=== PATIENT | male | born 1945 | race Caucasian/White ===

== ENCOUNTER 2019-04-29 21:05 | Emergency (ER) | payer OTHER ==
[~2019-04-29] VITALS: Ht 167.6 cm; Wt 72.0 kg
[2019-04-29] MEDS ORDERED: BRIM15DR8 OU (21:27)
[2019-04-29] MEDS ORDERED: TAMS-1 PO (21:27)
[2019-04-29] MEDS ORDERED: SITA100 PO (21:27)
[2019-04-29] MEDS ORDERED: LISI-661 PO (21:27)
[2019-04-29] MEDS ORDERED: ATOR40TA28 PO (21:27)
[2019-04-29] MEDS ORDERED: EMPA10TA PO (21:27)
[2019-04-29] MEDS ORDERED: BUDE10.2 IH (21:27)
[2019-04-29] MEDS ORDERED: INSLAN SQ (21:28)
[2019-04-29] MEDS ORDERED: IPRATROPIUM BROMIDE 0.5 MG/2.5 ML NEB SOLUTION NEB ONE (22:30)
[2019-04-29] MEDS ORDERED: MethylPREDNISolone SOD SUCC 125 MG/2 ML VIAL IVP ONE (22:30)
[2019-04-29] MEDS ORDERED: ALBUTEROL SULFATE 2.5 MG/0.5 ML NEB SOLUTION NEB ONE (22:30)
[2019-04-29] MEDS ORDERED: ACETAMINOPHEN 500 MG TABLET PO ONE (22:30)
[2019-04-29 23:00] LABS: BASOPHILS % (AUTO) 0.3 % (0.0-2.0); EOSINOPHILS % (AUTO) 0.6 % (1.0-6.0); HEMATOCRIT 41.7 % (41-53); HEMOGLOBIN 13.9 g/dL (13.5-17.5); LYMPHOCYTES # (AUTO) 2.9 K/uL (1.0-4.8); LYMPHOCYTES % (AUTO) 44.7 % (22.0-44.0); MEAN CORPUSCULAR HEMOGLOBIN 33.2 pg (26.0-34.0); MEAN CORPUSCULAR HGB CONC 33.4 G/dL (31.0-37.0); MEAN CORPUSCULAR VOLUME 99 fL (80-100); MONOCYTES # (AUTO) 0.5 K/uL (0.1-1.0); MONOCYTES % (AUTO) 7.1 % (2.0-9.0); NEUTROPHILS % (AUTO) 47.3 % (40.0-70.0); PLATELET COUNT (AUTO) 212 K/uL (150-450); RED BLOOD CELL COUNT(AUTO) 4.19 MIL/uL (4.50-5.90); RED CELL DISTRIBUTION WIDTH 12.6 % (11.5-14.5)
[2019-04-29 23:10] LABS: ANION GAP 9 mmol/L (8-16); CARBON DIOXIDE 27 mmol/L (22-29); CHLORIDE 106 mmol/L (98-107); CREATININE 0.96 mg/dL (0.60-1.30); GLUCOSE,RANDOM 131 mg/dL (70-110); POTASSIUM 3.8 mmol/L (3.5-5.1); SODIUM SERUM 142 mmol/L (136-145); UREA NITROGEN, BLOOD 19 mg/dL (7-18)
[2019-04-29 23:11] LABS: GLOMERULAR FILTR. RATE CALC > 60 mL/min (>60)
[2019-04-29 23:16] LABS: ALANINE AMINOTRANSFERASE 15 U/L (12-78); ALBUMIN 3.3 g/dL (3.4-5.0); ALKALINE PHOSPHATASE 95 U/L (46-116); ASPARTATE AMINOTRANSFERASE 11 U/L (15-37); BILIRUBIN,TOTAL 0.3 mg/dL (0.1-1.0)
[2019-04-29 23:20] LABS: LACTIC ACID 1.2 mmol/L (0.4-2.0)
[2019-04-29 23:23] LABS: B-TYPE NATRIURETIC PEPTIDE 10 pg/mL (0-100)
[2019-04-29 23:58] LABS: INFLUENZA TYPE A NEGATIVE FOR TYPE A (NEGATIVE); INFLUENZA TYPE B NEGATIVE FOR TYPE B (NEGATIVE)
[2019-04-30] MEDS ORDERED: GuaiFENesin/D-METHORPHAN [SUGAR-FREE] 200-20MG/10 ML SYRUP UDCUP PO ONE (00:45)
[2019-04-30] MEDS ORDERED: AZITHROMYCIN 250 MG TABLET PO ONE (00:45)
[2019-04-30] MEDS ORDERED: ACETAMINOPHEN 500 MG TABLET PO ONE (00:45)
[2019-04-30] MEDS ORDERED: CEPHALEXIN MONOHYDRATE 500 MG CAPSULE PO ONE (00:45)
[2019-04-30] MEDS ORDERED: ALBUTEROL SULFATE HFA 90 MCG/PUFF 8 GM INHALER IH ONE (00:45)
[2019-04-30 01:34] VITALS: BP 136/74
[2019-04-30 02:09] LABS: GLUCOSE,POINT OF CARE 170 MG/DL (70-110)
== END 2019-04-30 01:38 | disposition home or self-care (01) ==
LOC: EMS 21:07
DX: J44.1 Chronic obstructive pulmonary disease with (acute) exacerbation (principal); E11.9 Type 2 diabetes mellitus without complications; I10 Essential (primary) hypertension; Z79.4 Long term (current) use of insulin; Z79.899 Other long term (current) drug therapy
CPT/HCPCS: 71045; 80053; 82962; 83605; 83880; 84484; 85025; 87040; 87804; 93005; 94640; 96374; 99285; J2930; J3535

== ENCOUNTER 2022-01-06 18:45 | Inpatient (IN) | payer OTHER ==
[~2022-01-06] VITALS: Ht 165.1 cm; Wt 75.6 kg
[~2022-01-06 18:45] MED LIST: ATOR40TA28 PO; BRIM15DR8 OU; BUDE10.2 IH; EMPA10TA PO; INSLAN SQ; LISI-893 PO; SITA100 PO; TAMS-1 PO
[2022-01-06 19:56] LABS: GLUCOSE,POINT OF CARE 278 MG/DL (70-110)
[2022-01-06] MEDS ORDERED: DICYCLOMINE HCL 20 MG TABLET PO ONE (20:00)
[2022-01-06] MEDS ORDERED: SODIUM CHLORIDE 0.9% 1,000 ML IV ONE (20:00)
[2022-01-06] MEDS ORDERED: ONDANSETRON HCL 4 MG/2 ML VIAL IVP ONE (20:00)
[2022-01-06 20:02] LABS: BASOPHILS % (AUTO) 0.1 % (0.0-2.0); EOSINOPHILS % (AUTO) 0 % (1.0-6.0); HEMATOCRIT 41.2 % (41-53); HEMOGLOBIN 13.8 g/dL (13.5-17.5); LYMPHOCYTES # (AUTO) 1.6 K/uL (1.0-4.8); LYMPHOCYTES % (AUTO) 19.4 % (22.0-44.0); MEAN CORPUSCULAR HEMOGLOBIN 32.3 pg (26.0-34.0); MEAN CORPUSCULAR HGB CONC 33.5 G/dL (31.0-37.0); MEAN CORPUSCULAR VOLUME 97 fL (80-100); MONOCYTES # (AUTO) 0.2 K/uL (0.1-1.0); MONOCYTES % (AUTO) 2.8 % (2.0-9.0); NEUTROPHILS # (AUTO) 6.5 K/uL (1.8-7.7); NEUTROPHILS % (AUTO) 77.7 % (40.0-70.0); PLATELET COUNT (AUTO) 144 K/uL (150-450); RED BLOOD CELL COUNT(AUTO) 4.26 MIL/uL (4.50-5.90); RED CELL DISTRIBUTION WIDTH 13.2 % (11.5-14.5)
[2022-01-06 20:12] LABS: ANION GAP 9 mmol/L (8-16); CALCIUM, TOTAL 8.8 mg/dL (8.8-10.5); CARBON DIOXIDE 29 mmol/L (22-29); CHLORIDE 103 mmol/L (98-107); GLUCOSE,RANDOM 311 mg/dL (70-110); POTASSIUM 3.4 mmol/L (3.5-5.1); SODIUM SERUM 141 mmol/L (136-145); UREA NITROGEN, BLOOD 15 mg/dL (7-18)
[2022-01-06 20:16] LABS: GLOMERULAR FILTR. RATE CALC > 60 mL/min (>60)
[2022-01-06 20:20] LABS: ALANINE AMINOTRANSFERASE 15 U/L (12-78); ALBUMIN 3.8 g/dL (3.4-5.0); ALKALINE PHOSPHATASE 81 U/L (46-116); ASPARTATE AMINOTRANSFERASE 13 U/L (15-37); BILIRUBIN,TOTAL 0.7 mg/dL (0.1-1.0); LIPASE 71 U/L (73-393); TOTAL PROTEIN, SERUM 7.4 g/dL (6.4-8.2)
[2022-01-06] MEDS ORDERED: SODIUM CHLORIDE 0.9% 100 ML ONE (21:09)
[2022-01-06] MEDS ORDERED: IOHEXOL 350 MG/ML 100 ML VIAL ONE (21:09)
[2022-01-06 22:01] LABS: GLUCOSE,POINT OF CARE 257 MG/DL (70-110)
[2022-01-06] MEDS ORDERED: CeFAZolin 1 GM/DEXTROSE 50 ML IV ONE (22:15)
[2022-01-06] MEDS ORDERED: POTASSIUM CHLORIDE 10% 40 MEQ/30 ML LIQUID UDCUP PO ONE (22:30)
[2022-01-06] MEDS ORDERED: ONDANSETRON HCL 4 MG/2 ML VIAL IVP PRN (22:30)
[2022-01-06] MEDS ORDERED: MORPHINE SULFATE 2 MG/ML SYRINGE IVP PRN (22:30)
[2022-01-06] MEDS ORDERED: MetroNIDAZOLE 750 MG/NACL 150 ML IV ONE (22:30)
[2022-01-06] MEDS ORDERED: ACETAMINOPHEN 325 MG TABLET PO PRN (22:30)
[2022-01-06] MEDS: RINGERS SOLUTION,LACTATED 1,000 ML IV SCH (22:41)
[2022-01-06] MEDS: AMPICILLIN SODIUM/SULBACTAM NA 1.5 GM in SODIUM CHLORIDE 0.9% 50 ML IV SCH (22:50)
[2022-01-06 22:58] LABS: COVID AG,FIA SOURCE NASAL SWAB
[2022-01-06] MEDS ORDERED: DEXTROSE 50%-WATER 25 GM/50 ML SYRINGE IVP PRN (23:00)
[2022-01-07] MEDS: INSULIN GLARGINE,HUM.REC.ANLOG 100 UNITS/ML SQ SCH ×2 (01:15→20:51)
[2022-01-07] MEDS ORDERED: MEBROFENIN TC99M/MCL ISOTOPE 1 EA INJ INJ ONE (01:37)
[2022-01-07] MEDS: INSULIN LISPRO 100 UNITS/ML SQ PRN ×2 (04:29→20:50)
[2022-01-07 04:31] LABS: GLUCOSE,POINT OF CARE 175 MG/DL (70-110)
[2022-01-07 05:39] VITALS: BP 135/69
[2022-01-07 06:33] LABS: BASOPHILS % (AUTO) 0.2 % (0.0-2.0); EOSINOPHILS % (AUTO) 0 % (1.0-6.0); HEMATOCRIT 38.4 % (41-53); HEMOGLOBIN 13.1 g/dL (13.5-17.5); LYMPHOCYTES # (AUTO) 1.8 K/uL (1.0-4.8); LYMPHOCYTES % (AUTO) 20.2 % (22.0-44.0); MEAN CORPUSCULAR HEMOGLOBIN 32.9 pg (26.0-34.0); MEAN CORPUSCULAR HGB CONC 34.2 G/dL (31.0-37.0); MEAN CORPUSCULAR VOLUME 96 fL (80-100); MONOCYTES # (AUTO) 0.8 K/uL (0.1-1.0); MONOCYTES % (AUTO) 8.7 % (2.0-9.0); NEUTROPHILS # (AUTO) 6.3 K/uL (1.8-7.7); NEUTROPHILS % (AUTO) 70.9 % (40.0-70.0); PLATELET COUNT (AUTO) 130 K/uL (150-450); RED CELL DISTRIBUTION WIDTH 13.2 % (11.5-14.5)
[2022-01-07 07:18] LABS: PROTHROMBIN TIME 11.1 SEC (9.4-11.6)
[2022-01-07] MEDS: AMPICILLIN SODIUM/SULBACTAM NA 1.5 GM in SODIUM CHLORIDE 0.9% 50 ML IV SCH ×3 (07:19→21:06)
[2022-01-07 07:41] VITALS: BP 116/72
[2022-01-07] MEDS: ATORVASTATIN CALCIUM 40 MG TABLET PO SCH (07:57)
[2022-01-07] MEDS: TAMSULOSIN HCL 0.4 MG CAPSULE PO SCH (07:57)
[2022-01-07] MEDS: HEPARIN SODIUM,PORCINE 5,000 UNITS/ML VIAL SQ SCH ×2 (07:58→16:00)
[2022-01-07] MEDS: LISINOPRIL 10 MG TABLET PO SCH ×2 (07:58→20:35)
[2022-01-07] MEDS: RINGERS SOLUTION,LACTATED 1,000 ML IV SCH ×2 (08:49→20:24)
[2022-01-07] MEDS: BRIMONIDINE TARTRATE 0.2% 5 ML OPHTHALMIC SOLUTION OU SCH (09:30)
[2022-01-07] MEDS: BUDESONIDE/FORMOTEROL FUMARATE 160-4.5 MCG/PUFF 10.2 GM INHALER IH SCH ×2 (09:30→20:35)
[2022-01-07] MEDS ORDERED: SODIUM CHLORIDE 0.9% 1,000 ML ONE (13:03)
[2022-01-07] MEDS ORDERED: BUPIVACAINE HCL/PF 0.5% 30 ML VIAL ID ONE (17:10)
[2022-01-07] MEDS ORDERED: LIDOCAINE 2%/EPI 1:200,000/PF 20 ML VIAL ID ONE (17:10)
[2022-01-07] MEDS ORDERED: 0.9% SODIUM CHLORIDE 1000 ML IRRIG SOLUTION BAG IRRIG ONE (17:35)
[2022-01-07] MEDS ORDERED: FentaNYL CITRATE PF 100 MCG/2 ML VIAL IVP PRN (18:00)
[2022-01-07] MEDS ORDERED: HYDROmorphone 2 MG/ML VIAL IVP PRN (18:00)
[2022-01-07] MEDS ORDERED: ONDANSETRON HCL 4 MG/2 ML VIAL IVP PRN (18:30)
[2022-01-07] MEDS ORDERED: MORPHINE SULFATE 2 MG/ML SYRINGE IVP PRN (18:30)
[2022-01-07] MEDS ORDERED: ACETAMINOPHEN 500 MG TABLET PO PRN (18:30)
[2022-01-07 18:41] LABS: GLUCOMETER DEV NAME(LOC) 6N.2; GLUCOSE,POINT OF CARE 136 MG/DL (70-110)
[2022-01-07 19:31] VITALS: BP 149/78
[2022-01-07 21:01] LABS: GLUCOMETER DEV NAME(LOC) 6S.1B; GLUCOSE,POINT OF CARE 192 MG/DL (70-110)
[2022-01-08] MEDS: HEPARIN SODIUM,PORCINE 5,000 UNITS/ML VIAL SQ SCH ×4 (00:24→23:29)
[2022-01-08] MEDS: RINGERS SOLUTION,LACTATED 1,000 ML IV SCH ×3 (03:03→23:30)
[2022-01-08 03:39] VITALS: BP 146/83
[2022-01-08] MEDS: INSULIN LISPRO 100 UNITS/ML SQ PRN ×2 (05:49→20:28)
[2022-01-08 05:57] LABS: GLUCOMETER DEV NAME(LOC) 6N.1; GLUCOSE,POINT OF CARE 208 MG/DL (70-110)
[2022-01-08] MEDS: AMPICILLIN SODIUM/SULBACTAM NA 1.5 GM in SODIUM CHLORIDE 0.9% 50 ML IV SCH ×3 (06:09→22:18)
[2022-01-08] MEDS: HYDROCODONE/ACETAMINOPHEN 5-325 MG TABLET PO PRN ×3 (06:14→22:18)
[2022-01-08] MEDS ORDERED: ONDANSETRON HCL 4 MG/2 ML VIAL IVP ONE (06:43)
[2022-01-08] MEDS ORDERED: ROCURONIUM BROMIDE 10 MG/ML 5 ML VIAL IVP ONE (06:43)
[2022-01-08] MEDS ORDERED: FentaNYL CITRATE PF 100 MCG/2 ML VIAL IVP ONE (06:43)
[2022-01-08] MEDS ORDERED: LIDOCAINE/PF 2% 5 ML VIAL IM ONE (06:43)
[2022-01-08] MEDS ORDERED: GLYCOPYRROLATE 0.2 MG/ML VIAL IM ONE (06:43)
[2022-01-08] MEDS ORDERED: NEOSTIGMINE METHYLSULFATE 1 MG/ML 10 ML VIAL IVP ONE (06:43)
[2022-01-08] MEDS ORDERED: PROPOFOL 1% 20 ML VIAL IVP ONE (06:43)
[2022-01-08 06:46] LABS: GLUCOMETER DEV NAME(LOC) SDS.; GLUCOSE,POINT OF CARE 137 MG/DL (70-110)
[2022-01-08 06:48] LABS: ANION GAP 8 mmol/L (8-16); CARBON DIOXIDE 26 mmol/L (22-29); CHLORIDE 101 mmol/L (98-107); GLUCOSE,RANDOM 206 mg/dL (70-110); POTASSIUM 3.6 mmol/L (3.5-5.1); SODIUM SERUM 135 mmol/L (136-145); UREA NITROGEN, BLOOD 11 mg/dL (7-18)
[2022-01-08 06:54] LABS: EOSINOPHILS % (AUTO) 0 % (1.0-6.0); HEMATOCRIT 37.1 % (41-53); HEMOGLOBIN 12.7 g/dL (13.5-17.5); LYMPHOCYTES # (AUTO) 1.8 K/uL (1.0-4.8); LYMPHOCYTES % (AUTO) 20.4 % (22.0-44.0); MEAN CORPUSCULAR HEMOGLOBIN 32.9 pg (26.0-34.0); MEAN CORPUSCULAR HGB CONC 34.3 G/dL (31.0-37.0); MEAN CORPUSCULAR VOLUME 96 fL (80-100); MONOCYTES # (AUTO) 0.5 K/uL (0.1-1.0); MONOCYTES % (AUTO) 5.2 % (2.0-9.0); NEUTROPHILS # (AUTO) 6.5 K/uL (1.8-7.7); NEUTROPHILS % (AUTO) 74.4 % (40.0-70.0); PLATELET COUNT (AUTO) 115 K/uL (150-450); RED BLOOD CELL COUNT(AUTO) 3.87 MIL/uL (4.50-5.90); RED CELL DISTRIBUTION WIDTH 13.5 % (11.5-14.5)
[2022-01-08 07:04] LABS: GLOMERULAR FILTR. RATE CALC > 60 mL/min (>60)
[2022-01-08 08:00] VITALS: BP 122/72
[2022-01-08] MEDS: OXYGEN THERAPY IH SCH ×3 (08:00→17:35)
[2022-01-08] MEDS: LISINOPRIL 10 MG TABLET PO SCH ×2 (09:00→20:29)
[2022-01-08] MEDS: TAMSULOSIN HCL 0.4 MG CAPSULE PO SCH (09:00)
[2022-01-08] MEDS: ATORVASTATIN CALCIUM 40 MG TABLET PO SCH (09:00)
[2022-01-08] MEDS: BUDESONIDE/FORMOTEROL FUMARATE 160-4.5 MCG/PUFF 10.2 GM INHALER IH SCH ×2 (09:13→20:29)
[2022-01-08] MEDS: BRIMONIDINE TARTRATE 0.2% 5 ML OPHTHALMIC SOLUTION OU SCH (09:14)
[2022-01-08 12:11] LABS: GLUCOMETER DEV NAME(LOC) 6S.1B; GLUCOSE,POINT OF CARE 209 MG/DL (70-110)
[2022-01-08] MEDS ORDERED: MAGNESIUM SULFATE 4 GM/WATER 100 ML IV PRN (13:45)
[2022-01-08] MEDS ORDERED: MAGNESIUM OXIDE 400 MG TABLET PO PRN (13:45)
[2022-01-08] MEDS ORDERED: MAGNESIUM SULFATE 2 GM/WATER 50 ML IV PRN (13:45)
[2022-01-08 14:16] LABS: ALBUMIN 2.8 g/dL (3.4-5.0)
[2022-01-08 16:29] VITALS: BP 123/76
[2022-01-08 17:31] LABS: GLUCOMETER DEV NAME(LOC) 6N.1; GLUCOSE,POINT OF CARE 172 MG/DL (70-110)
[2022-01-08] MEDS: INSULIN GLARGINE,HUM.REC.ANLOG 100 UNITS/ML SQ SCH (20:28)
[2022-01-08 20:39] VITALS: BP 123/68
[2022-01-08 20:56] LABS: GLUCOMETER DEV NAME(LOC) 6S.1B; GLUCOSE,POINT OF CARE 201 MG/DL (70-110)
[2022-01-09] MEDS: HYDROCODONE/ACETAMINOPHEN 5-325 MG TABLET PO PRN (04:44)
[2022-01-09 04:52] VITALS: BP 132/73
[2022-01-09] MEDS: INSULIN LISPRO 100 UNITS/ML SQ PRN ×4 (05:40→22:24)
[2022-01-09] MEDS: AMPICILLIN SODIUM/SULBACTAM NA 1.5 GM in SODIUM CHLORIDE 0.9% 50 ML IV SCH ×3 (05:50→22:27)
[2022-01-09 05:52] LABS: GLUCOMETER DEV NAME(LOC) 6N.1; GLUCOSE,POINT OF CARE 167 MG/DL (70-110)
[2022-01-09] MEDS: OXYGEN THERAPY IH SCH ×2 (08:00→20:00)
[2022-01-09] MEDS: HEPARIN SODIUM,PORCINE 5,000 UNITS/ML VIAL SQ SCH ×2 (08:24→16:01)
[2022-01-09] MEDS: ATORVASTATIN CALCIUM 40 MG TABLET PO SCH (08:25)
[2022-01-09] MEDS: TAMSULOSIN HCL 0.4 MG CAPSULE PO SCH (08:25)
[2022-01-09] MEDS: LISINOPRIL 10 MG TABLET PO SCH ×2 (08:25→20:23)
[2022-01-09] MEDS: BUDESONIDE/FORMOTEROL FUMARATE 160-4.5 MCG/PUFF 10.2 GM INHALER IH SCH ×2 (08:26→22:27)
[2022-01-09] MEDS: BRIMONIDINE TARTRATE 0.2% 5 ML OPHTHALMIC SOLUTION OU SCH (08:26)
[2022-01-09 08:36] VITALS: BP 139/72
[2022-01-09] MEDS: RINGERS SOLUTION,LACTATED 1,000 ML IV SCH ×2 (10:36→20:25)
[2022-01-09 11:21] LABS: GLUCOMETER DEV NAME(LOC) 6S.1B; GLUCOSE,POINT OF CARE 152 MG/DL (70-110)
[2022-01-09] MEDS: IBUPROFEN 800 MG TABLET PO PRN (16:15)
[2022-01-09] MEDS ORDERED: BISACODYL 5 MG EC TABLET PO PRN (17:15)
[2022-01-09] MEDS: BISACODYL 5 MG EC TABLET PO SCH (18:27)
[2022-01-09 19:06] VITALS: BP 131/69
[2022-01-09 19:52] VITALS: BP 119/71
[2022-01-09] MEDS ORDERED: SODIUM CHLORIDE 0.9% 500 ML IV ONE (22:16)
[2022-01-09] MEDS: INSULIN GLARGINE,HUM.REC.ANLOG 100 UNITS/ML SQ SCH (22:25)
[2022-01-10 04:19] VITALS: BP 121/65
[2022-01-10] MEDS: RINGERS SOLUTION,LACTATED 1,000 ML IV SCH (06:07)
[2022-01-10] MEDS: AMPICILLIN SODIUM/SULBACTAM NA 1.5 GM in SODIUM CHLORIDE 0.9% 50 ML IV SCH (06:08)
[2022-01-10 06:41] LABS: GLUCOMETER DEV NAME(LOC) 6S.1B; GLUCOSE,POINT OF CARE 195 MG/DL (70-110)
[2022-01-10] MEDS: OXYGEN THERAPY IH SCH (08:00)
[2022-01-10] MEDS: LISINOPRIL 10 MG TABLET PO SCH (08:24)
[2022-01-10] MEDS: HEPARIN SODIUM,PORCINE 5,000 UNITS/ML VIAL SQ SCH ×2 (08:24)
[2022-01-10] MEDS: BISACODYL 5 MG EC TABLET PO SCH (08:24)
[2022-01-10] MEDS: ATORVASTATIN CALCIUM 40 MG TABLET PO SCH (08:24)
[2022-01-10] MEDS: TAMSULOSIN HCL 0.4 MG CAPSULE PO SCH (08:24)
[2022-01-10] MEDS: BRIMONIDINE TARTRATE 0.2% 5 ML OPHTHALMIC SOLUTION OU SCH (08:25)
[2022-01-10] MEDS: BUDESONIDE/FORMOTEROL FUMARATE 160-4.5 MCG/PUFF 10.2 GM INHALER IH SCH (08:25)
[2022-01-10] MEDS ORDERED: BISA10SU11 PR (08:31)
[2022-01-10] MEDS ORDERED: AMOX1TAB16 PO (08:31)
[2022-01-10] MEDS: IBUPROFEN 800 MG TABLET PO PRN (08:33)
[2022-01-10 09:06] VITALS: BP 128/67
[2022-01-10] MEDS: INSULIN LISPRO 100 UNITS/ML SQ PRN (12:05)
[2022-01-10 12:16] LABS: GLUCOMETER DEV NAME(LOC) 6S.1B; GLUCOSE,POINT OF CARE 189 MG/DL (70-110)
== END 2022-01-10 13:40 | disposition home or self-care (01) | DRG 418 ==
LOC: EMS 18:50 → 6S 01-07 04:00
PROVIDERS: ADMIT Internal Medicine; ATTEND Internal Medicine
PROC: 0FT44ZZ Resection of Gallbladder, Percutaneous Endoscopic Approach (ICD-10-PCS; 2022-01-07)
PROC: 0DTJ4ZZ Resection of Appendix, Percutaneous Endoscopic Approach (ICD-10-PCS; principal; 2022-01-07 15:30)
DX: K81.0 Acute cholecystitis (principal); K35.80 Unspecified acute appendicitis; R65.10 Systemic inflammatory response syndrome (SIRS) of non-infectious origin without acute organ dysfunction; K86.2 Cyst of pancreas; D64.9 Anemia, unspecified; D69.6 Thrombocytopenia, unspecified; E11.65 Type 2 diabetes mellitus with hyperglycemia; E78.5 Hyperlipidemia, unspecified; E83.42 Hypomagnesemia; E87.6 Hypokalemia; I10 Essential (primary) hypertension; K82.8 Other specified diseases of gallbladder; K83.8 Other specified diseases of biliary tract; N40.0 Benign prostatic hyperplasia without lower urinary tract symptoms; Z20.822 Contact with and (suspected) exposure to COVID-19; Z79.4 Long term (current) use of insulin; Z79.899 Other long term (current) drug therapy
CPT/HCPCS: 74177; 76705; 78226; 80048; 80053; 82040; 82962; 83605; 83690; 83735; 84484; 85025; 85610; 85730; 87081; 88304; 99285; A9537; J0295; J0690; J1644; J1815; J2270; J2405; J2704; J3010; J3475; J3490; J7030; J7040; J7050; J7120; Q9967